=== PATIENT | male | born 2000 | race Two or more races ===

== ENCOUNTER 2022-01-29 20:49 | Emergency (ER) | payer BC, OTHER ==
[~2022-01-29] VITALS: Ht 172.7 cm; Wt 67.2 kg
[2022-01-29 23:02] LABS: Basophils # (auto) 0 10 ^3/uL (0-0.2); Basophils % (auto) 0.1 % (0.0-2.0); Eosinophils # (auto) 0.1 10 ^3/uL (0-0.8); Hematocrit 44.3 % (41.0-53.0); Hemoglobin 15.2 g/dL (13.5-17.5); Lymphocytes # (auto) 1.2 10 ^3/uL (0.4-5.4); Lymphocytes % (auto) 13.2 % (10.0-50.0); Mean Corpuscular Hemoglobin 32.4 pg (28.0-32.0); Mean Corpuscular Hgb Conc. 34.2 g/dL (32.0-36.0); Mean Corpuscular Volume 94.6 fL (80.0-100.0); Monocytes # (auto) 0.9 10 ^3/uL (0-1.3); Monocytes % (auto) 9.8 % (0.0-12.0); Neutrophils % (auto) 75.9 % (37.0-80.0); Nucleated Red Blood Cells % 0.1 %; Red Blood Cells 4.69 10^6/uL (4.5-5.90); Red Cell Distribution Width 12.9 % (11.8-14.3); White Blood Cell 9.2 10^3/uL (4.4-10.8)
[2022-01-29 23:17] LABS: Albumin 3.8 g/dL (3.4-5.0); BUN/Creatinine Ratio 13.6; Calcium 8.5 mg/dL (8.5-10.1); Potassium 3.7 mmol/L (3.5-5.1)
[2022-01-29 23:19] LABS: Bilirubin, Total 0.6 mg/dL (0.2-1.0); Total Protein 7.2 g/dL (6.4-8.2)
[2022-01-30] MEDS ORDERED: ONDANSETRON HCL 4 MG/2 ML VIAL IV ONE (00:15)
[2022-01-30] MEDS ORDERED: MORPHINE SULFATE 4 MG/ML SYR/VIAL IV ONE (00:15)
[2022-01-30] MEDS ORDERED: LACTATED RINGER'S 1,000 ML IV ONE (00:15)
[2022-01-30] MEDS ORDERED: IOHEXOL 300 MG/ML 100ML BOTTLE IJ ONE (00:29)
[2022-01-30 00:33] LABS: Urine Bacteria NONE SEEN /hpf (None Seen); Urine Blood Negative /uL (Negative); Urine Mucus FEW (None Seen); Urine Specific Gravity 1.029 (1.001-1.035); Urine WBC <1 /hpf (0 - 3)
[2022-01-30 01:20] LABS: CRP High Sensitivity 1.58 mg/dL (< 0.3)
[2022-01-30 02:00] VITALS: BP 120/72
[2022-01-30] MEDS ORDERED: MAGNESIUM CITRATE SOLUTION 300 ML BTL PO ONE (03:00)
[2022-01-30] MEDS ORDERED: POLYETHYLENE GLYCOL 17 GM PWDR PO ONE (03:15)
== END 2022-01-30 03:27 | disposition home or self-care (01) ==
LOC: ER 20:49
DX: R10.32 Left lower quadrant pain (principal); K59.00 Constipation, unspecified; Z88.0 Allergy status to penicillin
CPT/HCPCS: 36415; 74177; 80053; 81001; 83690; 85025; 85652; 86141; 96361; 96374; 96375; 99285; J2270; J2405; Q9967

== ENCOUNTER 2024-03-12 14:18 | Emergency (ER) | payer BC ==
[~2024-03-12] VITALS: Ht 175.3 cm; Wt 69.0 kg
--- NOTE | 2024-03-12 14:42 | ED.PDOC ---
History of Present Illness HPI Comments 23 y.o female with PMHx of asthma, presents to the ED for a chief complaint of a productive cough associated with green phlegm sputum, sore throat, and a fever that presented one day ago. Patient reports he was diagnosed with Pharyngitis yesterday, given antibiotics Keflex but had a bad reaction. Patient had t emperature of 101 F at home, took Tylenol and Ibupforen and presents afebrile at the ED. Patient denies any SOB, chest pain, nausea, vomiting, leg swelling, or recent illness exposure. He denies any substance, alcohol or tobacco use. Chief Complaint: Flu like Time Seen by MD: 14:27 Primary Care Provider: THU Monk Notes: Nurses Notes, Medications, Allergies Allergies: Coded Allergies: Penicillins (Verified Allergy, Unknown, 01/29/22) Information Source: Patient Mode of Arrival: Ambulatory Severity: Moderate Timing: Days (1) Duration: Since onset Past Medical History PAST MEDICAL HISTORY: Asthma Surgical History: Denies all surgeries Family History Family History: Unknown Social History Smoker: Non-Smoker Alcohol: Denies ETOH Use Drugs: Denies Drug Use Lives In: Home Constitutional: reports: chills, fever; denies: diaphoresis, fatigue, malaise, sweats, weakness, others EENTM: reports: throat pain; denies: blurred vision, double vision, ear bleeding, ear discharge, ear drainage, ear pain, ear ringing, eye pain, eye redness, hearing loss, mouth pain, mouth swelling, nasal discharge, nose bleeding, nose congestion, nose pain, photophobia, tearing, throat swelling, voice changes, others Respiratory: reports: cough; denies: hemoptysis, orthopnea, SOB at rest, shortness of breath, SOB with excertion, stridor, wheezing, others Cardiovascular: denies: chest pain, dizzy spells, diaphoresis, Dyspnea on exertion, edema, irregular heart beat, left arm pain, lightheadedness, palpitations, PND, syncope, others Gastrointestinal: denies: abdomen distended, abdominal pain, blood streaked bowels, constipated, diarrhea, dysphagia, difficulty swallowing, hematemesis, melena, nausea, poor appetite, poor fluid intake, rectal bleeding, rectal pain, vomiting, others Genitourinary: denies: burning, dysuria, flank pain, frequency, hematuria, incontinence, penile discharge, penile sore, pain, testicle pain, testicle swelling, urgency, others Neurological: denies: dizziness, fainting, headache, left sided numbness, left sided weakness, numbness, paresthesia, pre-existing deficit, right sided numbness, right sided weakness, seizure, speech problems, tingling, tremors, weakness, others Musculoskeletal: denies: back pain, gout, joint pain, joint swelling, muscle pain, muscle stiffness, neck pain, others Integumetry: denies: bruises, change in color, change in hair/nails, dryness, laceration, lesions, lumps, rash, wounds, others Allergic/Immunocompromised: denies: Difficulty Healing, Frequent Infections, Hives, Itching, others Hematologic/Lymphatic: denies: anemia, blood clots, easy bleeding, easy bruising, swollen glands, others Endocrine: denies: excessive hunger, excessive sweating, excessive thirst, excessive urination, flushing, intolerance to cold, intolerance to heat, unexplained weight gain, unexplained weight loss, others Psychiatric: denies: anxiety, bipolar disorder, depression, hopeless, panic disorder, schizophrenia, sleepless, suicidal, others All Other Systems: Reviewed and Negative Physical Exam General Appearance: No Apparent Distress HEENT: Normal ENT Inspection, Pharynx Normal, TMs Normal Neck: Full Range of Motion, Non-Tender, Normal, Normal Inspection Respiratory: Chest Non-Tender, Lungs Clear, No Accessory Muscle Use, No Respiratory Distress, Normal Breath Sounds Cardiovascular: No Edema, No JVD, No Murmur, No Gallop, Normal Peripheral Pulses, Regular Rate/Rhythm Breast Exam: Deferred Gastrointestinal: No Organomegaly, Non Tender, No Pulsatile Mass, Normal Bowel Sounds, Soft Genitalia: Deferred Pelvic: Deferred Rectal: Deferred Extremities: No calf tenderness, Normal capillary refill, Normal inspection, No rmal range of motion, Non-tender, No pedal edema Musculoskeletal : Apperance: Normal Neurologic: Alert, leguillon debeader II-XII nml as Tested, No Motor Deficits, Normal Affect, Normal Mood, No Sensory Deficits Cerebellar Function: Normal Reflexes: Normal Skin: Dry, Normal Color, Warm Lymphatic: No Adenopathy Was a procedure done? Was a procedure done?: No Differential Dx Considerations may include: Viral syndrome, Dehydration, electrolyte imbalance, Bronchitis, URI, pharyngitis, Influenza, Asthma X-Ray, Labs, Meds, VS Vital Signs Date Time Temp Pulse Resp B/P (MAP) Pulse Ox O2 Delivery O2 Flow Rate FiO2 03/12/24 14:49 109 20 98 Room Air 03/12/24 14:49 98.9 109 20 137/81 (99) 98 98.9 03/12/24 14:28 98.9 109 20 137/81 (99) 98 Lab Test 03/12/24 14:30 Range/Units Influenza Type A Antigen Negative Negative Influenza Type B Antigen Negative Negative SARS-CoV-2 Antigen (Rapid) Negative NEGATIVE B influenza a and influenza B are negative The COVID test is negative At this time, the patient will be discharged. The patient is currently afebrile The patient was told to take acetaminophen for the fever. The patient will return to the emergency department the condition worsens. Upon discharge, the patient had an oxygen saturation of around 98%. The patient understands and is agreement with the management. The patient will follow up with their primary care doctor within the next 2 days if needed. Time of 1ST Reevaluation: 14:38 Reevaluation 1ST: Unchanged Patient Education/Counseling: Diagnosis, Treatment, Prognosis, Need For Follow Up Family Education/Counseling: Diagnosis, Treatment, Prognosis, Need For Follow Up Departure 1 Departure Time of Disposition: 15:44 Impression: Primary Impression: Viral syndrome Additional Impression: Fever Qualified Codes: R50.9 - Fever, unspecified Disposition: 01 HOME / SELF CARE / HOMELESS Condition: Fair Discharged With: Self Critical Care Note Critical Care Time?: No Stability Stability form required: No I personally scribed for KATJA SCHULTZ MD ([email or web address]) on 03/12/24 at 14:42. Electronically submitted by Jacki Zuniga ([facility]). KATJA SCHULTZ MD Mar 12, 2024 14:42
[2024-03-12 14:49] VITALS: BP 137/81; PULSE 109; RESP 20; TEMP 98.9; O2SAT 98
[2024-03-12 15:38] LABS: Rapid Influenza A Negative (Negative); Rapid Influenza B Negative (Negative)
[2024-03-12 15:39] LABS: COVID19 ANTIGEN SOFIA FIA NEGATIVE (NEGATIVE)
== END 2024-03-12 15:48 | disposition home or self-care (01) ==
LOC: ER 14:22
DX: B34.9 Viral infection, unspecified (principal); J45.909 Unspecified asthma, uncomplicated; Z20.822 Contact with and (suspected) exposure to COVID-19; Z88.0 Allergy status to penicillin
CPT/HCPCS: 36415; 87426; 87804

== ENCOUNTER 2025-02-11 19:22 | Emergency (ER) | payer SELFPAY ==
[~2025-02-11] VITALS: Ht 177.8 cm; Wt 72.6 kg
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
[2025-02-11] MEDS: HYDROcodone-ACET 5/325MG TAB PO ONE (19:50)
[2025-02-11] MEDS: IBUPROFEN 600 MG TAB PO ONE (19:50)
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
[2025-02-11] MEDS ORDERED: IBUP-1456 PO (20:37)
[2025-02-11 21:04] VITALS: BP 140/92; PULSE 88; RESP 20; TEMP 97.8; O2SAT 99
== END 2025-02-11 21:04 | disposition home or self-care (01) ==
LOC: ER 19:22 → EDBD 19:22 → ER 21:04
DX: S62.317A Displaced fracture of base of fifth metacarpal bone, left hand, initial encounter for closed fracture (principal); J45.909 Unspecified asthma, uncomplicated; Z88.0 Allergy status to penicillin; V43.52XA Car driver injured in collision with other type car in traffic accident, initial encounter; Y93.89 Activity, other specified; Y92.410 Unspecified street and highway as the place of occurrence of the external cause; Y99.8 Other external cause status
CPT/HCPCS: 73110